=== PATIENT | female | born 1975 | race Two or more races ===

== ENCOUNTER 2018-11-03 20:12 | Emergency (ER) | payer OTHER ==
[~2018-11-03] VITALS: Ht 165.1 cm; Wt 84.0 kg
[2018-11-03 20:28] VITALS: BP 119/69
== END 2018-11-03 23:07 | disposition left against medical advice (07) ==
LOC: ER 20:12
DX: Z53.21 Procedure and treatment not carried out due to patient leaving prior to being seen by health care provider (principal)